=== PATIENT | female | born 1995 | race Caucasian/White ===

== ENCOUNTER 2019-03-22 01:40 | Emergency (ER) | payer BC ==
[~2019-03-22] VITALS: Ht 154.9 cm; Wt 56.7 kg
[~2019-03-22 01:40] MED LIST: ACETAMINOPHEN-1 EAC1 PO; AZITHROMYCIN 2250 MG PO; IBUPROFEN 800800 M1 PO; IBUPROFEN 800800 MG PO; NORCO 5-325 TA1 EACH PO; PERCOCET PO; PROMETH-CODEIN 65 ML PO; TRINATE TABLET1 TAB PO; ZPAK PO
[2019-03-22 02:13] LABS: URINE BILIRUBIN NEGATIVE (Negative); URINE BLOOD 3+ (Negative); URINE CLARITY CLEAR; URINE COLOR YELLOW; URINE GLUCOSE-RANDOM NEGATIVE (Negative); URINE KETONES NEGATIVE (Negative); URINE LEUKOCYTES-REFLEX TRACE (Negative); URINE NITRITE-REFLEX NEGATIVE (Negative); URINE PROTEIN 2+ (Negative); URINE UROBILINOGEN 0.2 E.U./dl (0.2-1.0)
[2019-03-22 02:13] LABS: ABSOLUTE EOSINOPHILS 0.1 thou/uL (0.0-0.7); ABSOLUTE LYMPHOCYTES 2.4 thou/uL (0.8-5.3); ABSOLUTE MONOCYTES 0.9 thou/uL (0.0-1.2); ABSOLUTE NEUTROPHILS 10.2 thou/uL (1.6-8.1); BASOPHILS 0.3 %; EOSINOPHILS 0.9 %; HEMATOCRIT 29.8 % (37.0-47.0); LYMPHOCYTES 17.8 %; MCH 27.7 pg (26.0-34.0); MCHC 33.5 g/dL (28.0-37.0); MCV 82.7 fL (80.0-100.0); MONOCYTES 6.9 %; MPV 10.1 fl. (7.2-11.1); NUCLEATED RBCS 0 /100WBC; PLATELET COUNT* 165 thou/uL (150-400); POLYS 74.1 %; RDW-CV 15.1 % (10.5-14.5); WBC 13.8 thou/uL (4.0-11.0)
[2019-03-22 02:29] LABS: SQUAMOUS 0-3 Few /LPF (0-3); WBC CLUMPS Few (None Seen)
[2019-03-22 02:30] LABS: BACTERIA-REFLEX >30 Many /HPF (None Seen); CASTS None Seen /LPF (None Seen); CRYSTALS None Seen /LPF (None Seen); MUCUS 0-3 Light strn/LPF (None Seen); URINE RBC >20 Many /HPF (0-2)
[2019-03-22 02:33] LABS: CALCIUM 8.5 mg/dL (8.5-10.1); CREATININE 0.6 mg/dL (0.6-1.3); POTASSIUM 3.8 mmol/L (3.5-5.1)
[2019-03-22 02:35] VITALS: BP 126/84
[2019-03-22 02:37] LABS: ALBUMIN 2.5 g/dL (3.4-5.0); TOTAL BILIRUBIN 0.2 mg/dL (<0.1-1.0); TOTAL PROTEIN 6.8 g/dL (6.4-8.2)
[2019-03-22 02:38] LABS: URIC ACID* 3.1 mg/dL (2.6-7.2)
== END 2019-03-22 02:35 | disposition short-term general hospital (02) ==
LOC: M.ERS 01:40
PROVIDERS: Emergency Medicine
DX: O26.893 Other specified pregnancy related conditions, third trimester (principal); Z3A.34 34 weeks gestation of pregnancy; R10.84 Generalized abdominal pain